=== PATIENT | male | born 1955 | race Caucasian/White ===

== ENCOUNTER 2021-12-09 06:15 | Emergency (ER) | payer BC ==
[2021-12-09] MEDS ORDERED: Iopamidol 370 76% 100 ML VIAL FS ONE (06:16)
[2021-12-09 07:22] LABS: #Basophils 0.1 thou/uL (0.0-0.2); #Lymphocytes 2.2 thou/uL (1.20-3.40); #Monocytes 1.3 thou/uL (0.11-0.59); #Neutrophils 12.8 thou/uL (1.40-6.50); %Basophils 0.5 % (0.0-1.0); %Lymphocytes 13.2 % (21.0-51.0); %Monocytes 7.9 % (0.0-10.0); %Neutrophils 78.4 % (42.0-75.0); Hemoglobin 14.6 g/dL (14.0-18.0); Mean Corpuscular HGB CONC 31.5 g/dL (32.0-36.0); Mean Corpuscular Hemoglobin 30.2 pg (27.0-31.0); Mean Corpuscular Volume 96.1 fL (78.0-98.0); Mean Platelet Volume 6.7 fL (7.4-10.4); Platelet Count 276 thou/uL (130-400); RBC Distribution Width 12.5 % (11.5-14.5); Red Blood Cell (RBC) Count 4.84 mill/uL (4.70-6.10); White Blood Cell (WBC) Count 16.3 thou/uL (4.8-10.8)
[2021-12-09 07:24] LABS: ALT (SGPT) 50 U/L (8-55); AST (SGOT) 42 U/L (5-34); Albumin 4.4 g/dL (3.4-4.8); Alkaline Phosphatase 62 U/L (40-110); Anion Gap 17 mmol/L (10-20); BUN (Urea Nitrogen) 23 mg/dL (8.4-25.7); Bilirubin, Total 0.6 mg/dL (0.2-1.2); Calc. Creatinine Clearance 0 mL/min (70-130); Carbon Dioxide 23 mmol/L (23-31); Chloride 103 mmol/L (98-107); Globulin 3.3 g/dL (2.4-3.5); Glucose 178 mg/dL (80-115); Lipase 139 U/L (8-78); Potassium 4.4 mmol/L (3.5-5.1); Protein, Total 7.7 g/dL (5.8-8.1); Sodium 139 mmol/L (136-145)
[2021-12-09] MEDS ORDERED: cefTRIAXone\\ROCEPHIN 2 GM VIAL ONE (08:10)
[2021-12-09] MEDS ORDERED: Morphine 4 MG/ML VIAL ONE (08:10)
[2021-12-09] MEDS ORDERED: Fentanyl 100 MCG/2 ML VIAL ONE ×2 (09:08→11:25)
[2021-12-09 09:49] LABS: Lactic Acid 2.1 mmol/L (0.5-2.2)
[2021-12-09 10:40] LABS: Bilirubin Negative (Negative); Blood, Urine Trace (Negative); Clarity Clear (Clear); Glucose, Urine (Dipstick) Negative (Negative); Ketone, Urine Negative (Negative); Leukocyte Negative (Negative); Nitrite Negative (Negative); Protein, Urine (Dipstick) Negative (Neg-Trace); Specific Gravity, Urine 1.015 (1.005-1.030); Urobilinogen 0.2 mg/dL (Less than 2)
[2021-12-09 11:00] LABS: Bacteria/HPF Rare-Few HPF (None Seen); RBC/HPF 0-3 HPF (0-3); Squamous Epithelial 0-3 HPF (0-3); WBC/HPF 0-3 HPF (0-3)
== END 2021-12-09 11:50 | disposition short-term general hospital (02) ==
LOC: BURERS 06:15
DX: N12 Tubulo-interstitial nephritis, not specified as acute or chronic (principal); K85.90 Acute pancreatitis without necrosis or infection, unspecified; I10 Essential (primary) hypertension; E11.9 Type 2 diabetes mellitus without complications; J44.9 Chronic obstructive pulmonary disease, unspecified; I73.9 Peripheral vascular disease, unspecified; Z85.51 Personal history of malignant neoplasm of bladder; Z79.82 Long term (current) use of aspirin; Z79.84 Long term (current) use of oral hypoglycemic drugs; Z79.899 Other long term (current) drug therapy
CPT/HCPCS: 36415; 74177; 80053; 81003; 81015; 83605; 83690; 84484; 85025; 87040; 87086; 93005; 96365; 96375; 96376; J0696; J2270; J3010; J3370; Q9967